=== PATIENT | female | born 1960 | race Caucasian/White ===

== ENCOUNTER 2023-08-25 14:22 | Emergency (ER) | payer BC, SELFPAY ==
[2023-08-25 14:34] VITALS: BP 145/80
--- NOTE | 2023-08-25 15:01 | ED.SKININJ ---
HPI-Injury
General
Chief Complaint: Bite
Source: patient
Exam Limitations: none
Time Seen by Provider: 08/25/23 14:43
Nursing documentation reviewed up to this point in time: agreed with
Travel History
Have you had any contact with someone who has COVID-19?: No
Do you have any symptoms of coronavirus? Fever > 100 degrees, chills, cough, shortness of breath, sore throat, loss of taste or smell, muscle aches, or headache?: No
History of Present Illness-Injury
Initial Injury comments:
63 yo female one hour [employer] tried to turn her daughter's dog's (Rotwiler) head away from an oncoming rival dog and her dog bit her right hand. Unsure of last tetanus immunization.
Past History
Past History
ED Past Medical History: Hypercholesterolemia
ED Past Surgical History: and Tonsilectomy
Social History
Tobacco: Non-smoker
Alcohol: Occasional
Personal:
Living: with family
Employment: Employed
Review of Systems
Review of Systems
Allergies reviewed?: Yes
All Other Systems: ROS reviewed and negative except as documented in HPI and ROS
Skin: Reports other (dog bite right hand)
Neurological: Denies numbness
Skin Exam
Bite
R hand dorsum over 2nd Metacarpal:
Type: animal
Skin has: full thickness laceration
Laceration length in cm: 3
Surrounding area around bite has: no evidence of erythema
Distal skin color and temperature: normal-warm & good color
Normal distal neurovascular exam: Yes
Phy Exam
Physical Exam
Physical Exam:
PHYSICAL EXAMINATION:
General: no apparent distress, not acutely ill
Neuro: alert and oriented.
Psychiatric: well kept. interactive and cooperative
Musculoskeletal: Moves with ease
Skin: Warm, pink. Dog bite right hand
Course
Orders/Labs/Results
Orders:
Orders
08/25/23 14:43
Tetanus/Diphth/Acelpertussis [Adacel] 0.5 ml IM .ONCE ONE
08/25/23 15:03
CR Hand - Right Min 3 Views Urgent
Comment:
Reason For Exam: Dog bite over second metacarpal
Vital Signs
Initial and Last Documented VS:
Initial Vital Signs
Temp Pulse Resp BP Pulse Ox
97.7 F 75 16 145/80 99
08/25/23 14:34 08/25/23 14:34 08/25/23 14:34 08/25/23 14:34 08/25/23 14:34
Last Documented Vital Signs
Temp Pulse Resp BP Pulse Ox
97.7 F 64 16 141/70 100
08/25/23 14:34 08/25/23 16:15 08/25/23 14:34 08/25/23 16:15 08/25/23 16:15
Procedures
Laceration Closure
R hand dorsum over 2nd metacarpal:
Status of Wound: clean
Description of Wound Edges: sharp
Preparation: cleaned with Betadine
Anesthesia: 1% Lidocaine with epi
Revision/Debridement: routine- no revision
Wound exploration: no tendon involvement (tendon well visualized, intact with full tendon function.)
Type of Closure: mattress sutures (6)
Skin Closure Material: 4-0 nylon
MDM/Problems Addressed
Differential Diagnosis Includes:
FB, fracture, tendon injury, laceration
MDM/Problems Addressed:
63 yo female one hour [employer] tried to turn her daughter's dog's (Rotwiler) head away from an oncoming rival dog and her dog bit her right hand. Unsure of last tetanus immunization.
Full range of motion of the fingers, all tendon function intact after anesthetizing the wound,
Visualized the tendon over the index finger MCP joint in all positions and no tendon disruption/injury noted
Wound sutured with mattress sutures. ATB ointment and nonstick, then gauze dressing applied.
Hand xray initially read by this examiner,
prescription for Augmentin sent to her pharmacy neg for FB, fracture
*Critical Care Note
Total Time (30-74mins, 75-104mins- exclusive of procedures): Not Applicable
ED Attending Note
-
Portions of this chart may have been created with voice recognition software.� Occasional wrong word or��sound alike� substitutions may have occurred due to the inherent limitations of voice recognition software.
Discharge Plan
Departure
Patient Disposition: Home (Routine Discharge)
Date of Disposition: 08/25/23
Time of Disposition: 15:56
Patient with high blood pressure during this ER visit?: No
Condition: Good
Discharge Problem:
Dog bite of right hand
Instructions: Animal Bites (DC), Laceration Repair With Stitches (DC)
Prescriptions:
New
amoxicillin-pot clavulanate 875-125 mg tablet
1 tab PO BID Qty: 20 0RF
Referrals:
Austen Damico DO [Family Provider] - Call in 1-3 days for appt
Activity Restrictions/Additional Instructions:
Has we discussed, have the sutures removed in 12 to 14 days.
Medical care immediately for signs of infection which may include increasing pain, redness, swelling, pus drainage, red streak up the arm or fever
I sent a prescription to your pharmacy for Augmentin 875 mg twice a day for 10 days
Interventions
Interventions:
*Risk Screen - Suicide Last Done: 08/25/23 16:15
*General Assessment Last Done: 08/25/23 16:15
*Neglect/Abuse Screening Last Done: 08/25/23 16:15
ED- Fall Risk Assessment Last Done: 08/25/23 16:15
*ED COVID-19 Vaccine History Last Done: 08/25/23 14:34
*Nursing Disposition Last Done: 08/25/23 16:15
ED-Skin Assessment Last Done: 08/25/23 16:15
Discharge Date and Time
Discharge Date/Time: 08/25/23 16:20
Print Language: HEBREW
[2023-08-25] MEDS: ADACEL 0.5 ML IM (16:11)
[2023-08-25 16:15] VITALS: BP 141/70
== END 2023-08-25 16:20 | disposition home or self-care (01) ==
LOC: EMR 14:22
PROVIDERS: EMERGENCY PHYSICIAN Emergency Medicine; FAMILY PHYSICIAN Family Medicine
DX: S61.451A Open bite of right hand, initial encounter (principal); W54.0XXA Bitten by dog, initial encounter; E78.00 Pure hypercholesterolemia, unspecified
CPT/HCPCS: 99283; 12042; 90471; 73130; 90715

== ENCOUNTER → 2024-07-30 12:30 | Outpatient (REF) | payer OTHER, SELFPAY | LOC: HWWDC 12:30 | PROVIDERS: ATTENDING PHYSICIAN Obstetrics & Gynecology Gynecology; FAMILY PHYSICIAN Family Medicine | DX: Z12.31 Encounter for screening mammogram for malignant neoplasm of breast (principal) | CPT/HCPCS: 77063; 77067 ==